=== PATIENT | female | born 1990 | race Caucasian/White ===

== ENCOUNTER 2019-01-08 08:30 | Inpatient (IN) | payer BC ==
[2019-01-22] MEDS ORDERED: Acetaminophen 500 MG Tab PO ONE (05:40)
[2019-01-22] MEDS ORDERED: Gabapentin 300 MG Cap PO ONE (05:40)
[2019-01-22] MEDS ORDERED: Celecoxib 200 MG Cap PO ONE (05:40)
[2019-01-22] MEDS ORDERED: Scopolamine 1.5 MG Transdermal Patch TOP ONE (05:40)
[2019-01-22] MEDS ORDERED: Dextrose 5%-Lactated Ringers 1,000 ML IV SCH (06:00)
[2019-01-22] MEDS ORDERED: cefOXitin 2 GM Vial ONE (06:43)
[2019-01-22 07:01] LABS: HEMOGLOBIN A1C 6.2 % (4.5-6.2)
[2019-01-22] MEDS ORDERED: Ondansetron 4 MG/2 ML SDV ONE (07:04)
[2019-01-22] MEDS ORDERED: Glycopyrrolate 0.2 MG/ML 5 ML MDV ONE (07:04)
[2019-01-22] MEDS ORDERED: Rocuronium 50 MG/5 ML Vial ONE (07:04)
[2019-01-22] MEDS ORDERED: Dexamethasone 4 MG/ML SDV ONE (07:04)
[2019-01-22] MEDS ORDERED: Neostigmine Methylsulfate 1 MG/ML 5 ML Syringe ONE (07:04)
[2019-01-22] MEDS ORDERED: Succinylcholine 200 MG/10 ML MDV ONE (07:04)
[2019-01-22] MEDS ORDERED: Propofol 200 MG/20 ML SDV ONE (07:04)
[2019-01-22] MEDS ORDERED: Midazolam 1 MG/ML 2 ML SDV ONE (07:11)
[2019-01-22] MEDS ORDERED: cefOXitin 2 GM in Sodium Chloride 0.9% 50 ML IV ONE (07:15)
[2019-01-22] MEDS ORDERED: Ketamine 500 MG/5 ML MDV IV SCH (07:30)
[2019-01-22] MEDS ORDERED: Ketamine 50 MG in Sodium Chloride 0.9% 49.5 ML IV SCH (07:30)
[2019-01-22] MEDS ORDERED: Labetalol 20 MG/4 ML Syringe ONE (07:59)
[2019-01-22] MEDS ORDERED: Lidocaine 0.4%/D5W 2 GM/500 ML BAG IV SCH (08:00)
[2019-01-22] MEDS ORDERED: Lidocaine 2% 100 MG/5 ML Syringe IVPUSH SCH (08:00)
[2019-01-22] MEDS ORDERED: hydrOXYzine HCl 100 MG/2 ML SDV IM ONE (09:07)
[2019-01-22] MEDS ORDERED: Ondansetron 4 MG/2 ML SDV IVPUSH ONE (09:29)
[2019-01-22] MEDS ORDERED: fentaNYL 100 MCG/2 ML SDV IVPUSH ONE (09:47)
[2019-01-22] MEDS ORDERED: diphenhydrAMINE 50 MG/ML SDV IVPUSH PRN (11:03)
[2019-01-22] MEDS ORDERED: Metoclopramide 10 MG/2 ML SDV IVPUSH PRN (11:03)
[2019-01-22] MEDS ORDERED: Labetalol 20 MG/4 ML Syringe IVPUSH PRN (11:03)
[2019-01-22] MEDS ORDERED: hydrOXYzine HCl 100 MG/2 ML SDV IM PRN (11:03)
[2019-01-22] MEDS: CHECK SCOPALAMINE PATCH TOP SCH (11:41)
[2019-01-22] MEDS: cefOXitin 2 GM in Sodium Chloride 0.9% 50 ML IV SCH ×2 (12:01→17:43)
[2019-01-22] MEDS: Pantoprazole 40 MG Vial IVPUSH SCH (12:01)
[2019-01-22] MEDS: HYDROmorphone 1 MG/ML Syringe IV PRN (12:41)
[2019-01-22] MEDS: Gabapentin 250 MG/5 ML Solution ML 470 ML Bottle PO SCH ×2 (15:04→20:22)
[2019-01-22] MEDS: MVI, Adult with Vitamin K 10 ML, Thiamine 200 MG, Chromium/Copper/Mang/Selen/Zn 1 ML in... IV SCH ×4 (15:07)
[2019-01-22] MEDS: HYDROmorphone 0.5 MG/0.5 ML Syringe IVPUSH PRN ×3 (16:27→22:36)
[2019-01-22] MEDS: Acetaminophen Soln 650 MG/20.3 ML UD Cup PO SCH ×2 (16:29→21:00)
[2019-01-22] MEDS: Heparin Sodium 5,000 Units/ML Vial SUBCUT SCH (17:43)
[2019-01-22] MEDS: levETIRAcetam 250 MG Tab PO SCH (20:23)
[2019-01-22] MEDS: Dextrose 5%-Lactated Ringers 1,000 ML IV SCH (21:54)
[2019-01-23] MEDS: cefOXitin 2 GM in Sodium Chloride 0.9% 50 ML IV SCH (00:13)
[2019-01-23] MEDS ORDERED: Iohexol 647 MG/ML 50 ML SDV PO PRN (00:48)
[2019-01-23] MEDS: HYDROmorphone 0.5 MG/0.5 ML Syringe IVPUSH PRN ×5 (01:43→14:40)
--- NOTE | 2019-01-23 01:45 | CRLCR ---
INDICATION: History of gastric bypass. TECHNIQUE: Two-view. FINDINGS: Two images from a upper GI demonstrate postsurgical changes from gastric bypass. There appears to be good communication with the esophagus, gastric bypass and gastrojejunostomy. There is no significant retention of contrast within the gastric bypass. No extravasation is seen. There is some mildly dilated jejunal loops in the left abdomen. These appear to be patent and demonstrate good transit. There is a surgical drain in the left upper quadrant. Mild atelectasis left lung base noted. IMPRESSION: Postsurgical changes gastric bypass as detailed above. No evidence for extravasation. No significant obstruction is seen based on 2 views. Dictated by Herbert Barahona MD @ Jan 27 2019 7:54AM Signed by Dr. Herbert Barahona @ Jan 27 2019 7:58AM
[2019-01-23] MEDS: Dextrose 5%-Lactated Ringers 1,000 ML IV SCH (04:07)
[2019-01-23] MEDS: Acetaminophen Soln 650 MG/20.3 ML UD Cup PO SCH ×4 (04:08→21:49)
[2019-01-23] MEDS: Heparin Sodium 5,000 Units/ML Vial SUBCUT SCH ×2 (06:00→17:01)
[2019-01-23] MEDS: Celecoxib 200 MG Cap PO SCH (07:33)
[2019-01-23] MEDS ORDERED: Dextrose 5%-Lactated Ringers 1,000 ML IV SCH (08:30)
[2019-01-23] MEDS: Gabapentin 250 MG/5 ML Solution ML 470 ML Bottle PO SCH ×3 (08:50→20:37)
[2019-01-23] MEDS: levETIRAcetam 250 MG Tab PO SCH ×2 (08:52→21:48)
[2019-01-23] MEDS: risperiDONE 1 MG Tab PO SCH ×2 (10:27→22:41)
[2019-01-23] MEDS: Sertraline 50 MG Tab PO SCH ×2 (10:28→22:41)
[2019-01-23] MEDS: CHECK SCOPALAMINE PATCH TOP SCH (11:22)
[2019-01-23] MEDS: SCOPOLAMINE PATCH CHECK TOP SCH (11:23)
[2019-01-23] MEDS: Pantoprazole 40 MG Vial IVPUSH SCH (13:26)
[2019-01-23] MEDS: MVI, Adult with Vitamin K 10 ML, Thiamine 200 MG, Chromium/Copper/Mang/Selen/Zn 1 ML in... IV SCH ×4 (16:59)
[2019-01-23] MEDS: HYDROmorphone 2 MG Tab PO PRN ×3 (17:03→21:53)
[2019-01-23] MEDS: HYDROmorphone 1 MG/ML Syringe IV PRN (20:37)
[2019-01-23] MEDS: Ondansetron 4 MG/2 ML SDV IVPUSH PRN (23:18)
[2019-01-24] MEDS: HYDROmorphone 1 MG/ML Syringe IV PRN (03:38)
[2019-01-24] MEDS: Acetaminophen Soln 650 MG/20.3 ML UD Cup PO SCH ×4 (03:38→21:06)
[2019-01-24] MEDS: Heparin Sodium 5,000 Units/ML Vial SUBCUT SCH ×2 (05:48→18:02)
[2019-01-24] MEDS ORDERED: Lidocaine 5% 700 MG Patch TRDERM PRN (07:43)
[2019-01-24] MEDS ORDERED: HYDROmorphone 0.5 MG/0.5 ML Syringe IVPUSH PRN (07:56)
[2019-01-24] MEDS: Celecoxib 200 MG Cap PO SCH (08:20)
[2019-01-24] MEDS: levETIRAcetam 250 MG Tab PO SCH ×2 (08:20→21:05)
[2019-01-24] MEDS: Gabapentin 250 MG/5 ML Solution ML 470 ML Bottle PO SCH ×3 (08:29→21:05)
[2019-01-24] MEDS ORDERED: Magnesium Hydroxide 400 MG/5 ML Susp 30 ML Cup PO ONE (08:30)
[2019-01-24] MEDS ORDERED: Bisacodyl 5 MG Tab PO ONE (08:30)
[2019-01-24] MEDS ORDERED: Cyanocobalamin (Vitamin B12) 1,000 MCG/ML SDV IM ONE (09:00)
[2019-01-24] MEDS: HYDROmorphone 2 MG Tab PO PRN ×3 (10:21→19:59)
[2019-01-24] MEDS: Sertraline 50 MG Tab PO SCH ×2 (11:33→21:07)
[2019-01-24] MEDS: risperiDONE 1 MG Tab PO SCH ×2 (11:33→21:07)
[2019-01-24] MEDS: Pantoprazole 40 MG Vial IVPUSH SCH (11:36)
[2019-01-24] MEDS: CHECK SCOPALAMINE PATCH TOP SCH (11:41)
[2019-01-24] MEDS: SCOPOLAMINE PATCH CHECK TOP SCH (11:41)
--- NOTE | 2019-01-24 11:44 | PN ---
DATE OF SERVICE: 01/23/2019 The patient is postoperative day #1 from laparoscopic Tom-en-Y gastric bypass. No major problems were noted overnight. The upper GI x-ray looks good. We will go up to a step 2 diet today and restart her Zoloft and Risperdal and otherwise maximize activity and work with pulmonary toilet. Akhil Bella MD /[id number]
--- NOTE | 2019-01-24 13:45 | PN ---
DATE OF SERVICE: 01/24/2019 The patient has been afebrile with stable vital signs. Oral intake is fairly good but still not moving her bowels, so we are going to give her some milk of magnesia today, and otherwise pain control appears to be somewhat inadequate. We will offer her lidocaine patches as needed, and she will likely be ready for discharge home tomorrow. Akhil Bella MD /[id number]
[2019-01-24] MEDS: MVI, Adult with Vitamin K 10 ML, Thiamine 200 MG, Chromium/Copper/Mang/Selen/Zn 1 ML in... IV SCH ×4 (16:56)
[2019-01-24] MEDS: Nystatin Susp 100,000 Unit/ML 5 ML UD Cup PO SCH ×2 (18:02→22:03)
[2019-01-24] MEDS: Ondansetron 4 MG/2 ML SDV IVPUSH PRN (21:05)
[2019-01-25] MEDS: HYDROmorphone 2 MG Tab PO PRN ×2 (03:47→08:59)
[2019-01-25] MEDS: Acetaminophen Soln 650 MG/20.3 ML UD Cup PO SCH ×2 (03:48→09:01)
[2019-01-25] MEDS: Ondansetron 4 MG/2 ML SDV IVPUSH PRN (04:05)
[2019-01-25] MEDS: Heparin Sodium 5,000 Units/ML Vial SUBCUT SCH (05:18)
[2019-01-25] MEDS: Nystatin Susp 100,000 Unit/ML 5 ML UD Cup PO SCH ×2 (05:18→09:01)
[2019-01-25] MEDS: Celecoxib 200 MG Cap PO SCH (08:54)
[2019-01-25] MEDS: levETIRAcetam 250 MG Tab PO SCH (08:54)
[2019-01-25] MEDS: Gabapentin 250 MG/5 ML Solution ML 470 ML Bottle PO SCH (08:54)
[2019-01-25] MEDS: Sertraline 50 MG Tab PO SCH (08:55)
[2019-01-25] MEDS: risperiDONE 1 MG Tab PO SCH (08:56)
[2019-01-25] MEDS: CHECK SCOPALAMINE PATCH TOP SCH (08:56)
--- NOTE | 2019-01-25 13:52 | OR ---
DATE OF PROCEDURE: 01/22/2019 PREOPERATIVE DIAGNOSIS: Morbid obesity. POSTOPERATIVE DIAGNOSES: 1. Morbid obesity. 2. Marked hepatomegaly. 3. Paraesophageal diaphragmatic hernia. OPERATIVE PROCEDURE: 1. Laparoscopic Tom-en-Y gastric bypass with long-limb gastroenterostomy (05003). 2. Juan-Cut needle liver biopsy (41767). 3. Repair of paraesophageal diaphragmatic hernia (10995). ANESTHESIA: General. ASSISTANTS: Gabriella Fletcher PA-C and and PAS. Praveen INDICATION FOR PROCEDURE: This is a 28-year-old female presenting with longstanding morbid obesity and increasingly significant comorbidities. After preoperative evaluation and discussion, she wished to proceed with a gastric bypass procedure. Potential risks of the procedure including bleeding, infection, leaks from various GI tract closures, problems with bowel obstruction over time, as well as possibility of cardiopulmonary, septic, or hemorrhagic complications leading to were discussed, and she wishes to proceed. DETAILS OF THE PROCEDURE: The patient was taken to the operating room and placed in a supine position. After general endotracheal anesthesia was induced, she was converted to a lithotomy position and the abdomen was prepped and draped. At 15 cm inferior and 5 cm left of xiphoid process, transverse incision was made and the peritoneal cavity entered under direct vision with an Optiview trocar inflated to 15 mmHg pressure with CO2. Laparoscope was reinserted. Bilateral transversus abdominis plane blocks were then placed and 5 additional trocars were placed across the upper and mid abdomen. General exploration revealed initially a large degree of fatty infiltration of the liver and liver roughly 2 to 3 times normal size. Juan-Cut needle biopsies were obtained from left lobe liver. Minimal bleeding from the biopsy sites was controlled with electrocautery. The omentum was then divided in the midline up to the level of the transverse colon. This allowed identification of small bowel to ligament of Treitz. Small bowel was then traced out 200 cm distal to that point, where it was divided transversely with a JENNIFER stapler. Small bowel was then traced out additional 150 cm, where the [id number] enteroenterostomy was accomplished with internal firing of the Endo-JENNIFER 60 mm stapler. Common opening was then closed transversely with the same stapler, angles anastomosed, and mesenteric defect approximated with some 0 Ethibond stitch along with 4 mL of fibrin sealant. The divided end of the Tom limb was then from the mesentery for a few centimeters, which allowed antecolic positioning of the Tom limb up to the level of the gastroesophageal junction without tension. The liver was then retracted anteriorly, and the patient was noted to have a moderate-sized paraesophageal diaphragmatic hernia. This contained prolapse of some perigastric fat and gastric fundus in a plane anterior to the course of the esophagus. The latter was reduced and peritoneum overlying it incised and reflected downward. The diaphragmatic hernia was then repaired anteriorly with some 0 Ethibond sutures, reinforced with PTFE pledgets. The gastrointestinal balloon catheter was then inflated to 15 mL and pulled up snuggly against the EG junction. Gastric wall over the apex of the balloon was then marked with electrocautery and balloon catheter deflated and pulled up from the esophagus. The lesser omental tissue adjacent to the gastric cardia was then incised, allowing dissection behind the stomach at that level. Pouch formation was initiated with a transverse firing of the JENNIFER stapler at the level of the cauterized zenaida in the gastric cardia and completed with some additional firings of JENNIFER mary up to and through the angle of HIS. Upon completion of the pouch, both staple lines were noted to be intact. The anvil of a 25-mm EEA stapler was attached to Ladson sump type tube. The latter was brought down through the mouth, taken out through a small opening in the gastric pouch, allowing the anvil likewise to be placed within the gastric pouch. The divided end of the Tom limb was then opened, and main body of the EEA stapler passed several centimeters into the lumen of small bowel, brought up the anvil, united with it, and thus creating the gastrojejunostomy. Upon removal of the stapler, double donuts of mucosa were noted within it. Small bowel was closed off with a vascular staple line. Gastrojejunostomy was reinforced with some 3-0 Vicryl seromuscular stitch along with fibrin sealant. Leak test was accomplished with injection of 120 mL of air in the gastric pouch while submerged with a cefoxitin-containing saline solution. No leaks were identified. Two Felton-Coffman drains were then placed adjacent to the gastrojejunostomy, taken out through subcostal trocar sites. With no further problems noted, trocars were removed and the peritoneal cavity deflated. Incisions were closed with 4-0 Vicryl skin stitch, which was also used to affix the drains. The patient was taken to the recovery room in satisfactory condition, and there were no evident complications. Physician ex assistant/program director, Gabriella Fletcher, played an essential role in assisting this case, helping to position the patient, retract structures as needed, as well as suturing and cutting sutures when indicated. Her presence improved patient's safety and decreased the operative time. Akhil Bella MD /[id number]
--- NOTE | 2019-01-25 17:34 | DISCH ---
ADMISSION DIAGNOSES: 1. Morbid obesity, BMI 44. 2. Insomnia. 3. Anxiety disorder. 4. Fibromyalgia. 5. Chronic mixed headache syndrome. 6. Slow transit constipation. 7. Gastroesophageal reflux disease. 8. Chronic midline low back pain with right-sided sciatica. 9. Myofascial pain. 10.Seizure disorder. 11.Medical cannabis use. 12.Recurrent major depression disorder, in partial remission. 13.Post-traumatic stress disorder. 14.Learning disorder. DISCHARGE DIAGNOSES: Laparoscopic Tom-en-Y gastric bypass surgery, liver biopsy, diaphragmatic hernia for morbid obesity, hepatomegaly, and diaphragmatic hernia. Date of surgery 01/22/2019. Surgeon, Akhil Bella MD. HISTORY: Kamla Caba is a 28-year-old female with longstanding history of morbid obesity and increasing comorbidities. After preoperative evaluation and discussion of possible risks and possible complications, she wished to proceed with surgical procedure. HOSPITAL COURSE: Kamla had her surgery on 01/22/2019. She had no operative complications. On postoperative day #1, she was started on a step 2 gastric bypass diet without cereal. She was able to shower. Upper GI looked good, and she was started on her home medications. On postoperative day 2, oral intake was fairly good, but did not have a bowel movement. She was given milk of magnesia and started having bowel movements. She was able to be discharged on postoperative day 3 without any complications. PHYSICAL EXAMINATION: GENERAL: Kamla Caba is a 28-year-old female, alert, oriented. Vital Signs: Height is 5 feet 5 inches, weight is 269 pounds. BMI is 44.8. TPR is 98.5, 105, 16. Blood pressure 107/53. HEENT: Negative. NECK: Supple. HEART: Regular rate and rhythm. LUNGS: Clear. ABDOMEN: Abdominal binder is on, 4 x 4 over GARETT drain site. Sutured trocar sites intact. EXTREMITIES: Without peripheral edema. DISPOSITION: Discharged to home. CONDITION: Stable and improving. FOLLOWUP APPOINTMENT: Gabriella Fletcher PA-C, on 02/02/2019 at 11 a.m. HOME MEDICATIONS: 1. Tylenol 650 mg oral q.6 hours p.r.n. pain. 2. Dilaudid 2 mg q.4 hours p.r.n. pain #30. 3. Nystatin 5 mL oral 4 times a day, 200 mL given. She is to resume home medication of: 1. Colace 100 mg oral daily. 2. Celebrex 200 mg oral daily, #14. 3. Continue Nexplanon. 4. Melani D 24-hour tablet, 1 tablet oral daily. 5. Flonase 1 spray in each nostril twice a day. 6. Neurontin 300 mg oral 3 times a day. 7. Neurontin 600 mg oral at bedtime. 8. Lidocaine 5% three patches transdermal daily. 9. Meclizine 12.5-25 mg oral every 6 hours p.r.n. dizziness. 10.Medical marijuana 4-8 mg oral at bedtime. 11.Melatonin 1 mg oral at bedtime. 12.Omeprazole 20 mg oral daily. 13.Zofran 4 mg oral every 4 hours p.r.n. nausea. 14.Sertraline 150 mg oral daily. 15.Keppra XR 750 mg oral twice daily. 16.Risperdal 2 mg oral daily. 17.Tramadol 50 to 100 mg oral every 6 hours p.r.n. pain. She is not to take that while taking the Dilaudid. Stop all vitamins and supplements. Discontinue Lodine as can cause problems with GI bleeding after Tom-en-Y gastric bypass surgery. DIET: Step 2 gastric bypass diet with no cereal until 02/06/2019. ACTIVITY AFTER DISCHARGE: No lifting over 10 pounds for 2 weeks. Other Activity: Walk at least 6 times daily inside your home. Driving: Do not drive for 1 week. Shower/bathing: May shower. DISCHARGE INSTRUCTIONS: Notify provider if any fever, nausea, or vomiting. Keep site clean and dry. Wear abdominal binder for 2 weeks and as tolerated. SPECIAL INSTRUCTION: Use incentive spirometer 10 times every hour while awake. Keep a food and liquid diary and bring to clinic appointment.
== END 2019-01-25 11:45 | disposition home or self-care (01) | DRG 403 ==
LOC: JP.SDS 01-22 05:25 → JP.SDSSCHI 01-22 05:25 → JP.2SS 01-22 09:15 → EDSTATUS 01-22 10:00
PROVIDERS: ADMIT Surgery; ATTEND Surgery
PROC: 0D164ZA Bypass Stomach to Jejunum, Percutaneous Endoscopic Approach (ICD-10-PCS; principal; 2019-01-22)
PROC: 0FB24ZX Excision of Left Lobe Liver, Percutaneous Endoscopic Approach, Diagnostic (ICD-10-PCS; 2019-01-22)
PROC: 0BQT4ZZ Repair Diaphragm, Percutaneous Endoscopic Approach (ICD-10-PCS; 2019-01-22)
DX: E66.01 Morbid (severe) obesity due to excess calories (principal); Z68.41 Body mass index [BMI] 40.0-44.9, adult; R16.0 Hepatomegaly, not elsewhere classified; K44.9 Diaphragmatic hernia without obstruction or gangrene; K76.0 Fatty (change of) liver, not elsewhere classified; G47.00 Insomnia, unspecified; G44.89 Other headache syndrome; K59.01 Slow transit constipation; F12.90 Cannabis use, unspecified, uncomplicated; F33.41 Major depressive disorder, recurrent, in partial remission; F41.9 Anxiety disorder, unspecified; M79.7 Fibromyalgia; K21.9 Gastro-esophageal reflux disease without esophagitis; M54.41 Lumbago with sciatica, right side; G40.909 Epilepsy, unspecified, not intractable, without status epilepticus; F43.10 Post-traumatic stress disorder, unspecified; F81.9 Developmental disorder of scholastic skills, unspecified; Z88.5 Allergy status to narcotic agent; Z88.8 Allergy status to other drugs, medicaments and biological substances; Z79.899 Other long term (current) drug therapy
CPT/HCPCS: 36415; 74240; 80053; 81025; 83036; 83735; 84100; 85027; 86850; 86900; 86901; 88307; 88313; A9270-GY; C9113; J0171; J0330; J0694; J1100; J1170; J1644; J2001; J2250; J2405; J2704; J2710; J2765; J2795; J3010; J3410; J3411; J3420; J3490; J7042; J7050; Q9967